=== PATIENT | male | born 1955 | race Caucasian/White ===

== ENCOUNTER 2017-02-22 07:17 | Day surgery (SDC) | payer BC, OTHER ==
[~2017-02-22 07:17] MED LIST: ACETAMINOPHEN 500 MG TABLET PO PRN; HYDROmorphone HCL 2 MG/ML VIAL IV PRN; MAG HYDROX/ALUMINUM HYD/SIMETH 30 ML UDC PO PRN; MAGNESIUM HYDROXIDE 30 ML UDC PO PRN; ONDANSETRON HCL/PF 2 MG/ML VIAL IV PRN; PROMETHAZINE HCL 25 MG in DEXTROSE 5 % IN WATER 50 ML IV PRN; RINGER'S SOLUTION,LACTATED 1,000 ML IV PRN; ZOLPIDEM TARTRATE 5 MG TABLET PO PRN; diphenhydrAMINE HCL 50 MG/ML VIAL IV PRN
[2017-02-22] MEDS: RINGER'S SOLUTION,LACTATED 1,000 ML IV ONE ×2 (08:16→10:29)
[2017-02-22] MEDS: ceFAZolin SODIUM 1 GM VIAL IV PRN (09:25)
--- NOTE | 2017-02-22 12:35 | OR ---
Anesthesia Procedure Note - Anesthesia Procedure Note Date of Service: 02/22/17 Narrative: Vital Signs - Last Taken Temp 36.7 C 02/22/17 08:40 Pulse 59 L 02/22/17 08:40 Resp 18 02/22/17 08:40 BP 124/60 02/22/17 08:40 Pulse Ox 97 02/22/17 08:40 O2 Oxygen Delivery Method Room Air 02/22/17 12:33 ANESTHESIA PROCEDURE NOTE Date of Procedure: 02/22/2017. Time of procedure: 0900. Performed by: Shorty Hyatt CRNA Wire Rope Sling Maker: None. Preprocedure diagnosis: Left humerus fracture. Post procedure diagnosis: Same. Procedure: Left ultrasound guided supraclavicular nerve block for postoperative analgesia. Indications: The patient is a 61 -year-old male, who is requesting a left ultrasound-guided supraclavicular nerve block for postoperative analgesia related to ORIF of left humerus fracture. Findings: See below. Details of the procedure: The tissue over the intended target site was cleansed with ChloraPrep. 1 ml Lidocaine 1 % was infiltrated to the skin and subcutaneous tissue. Under sterile technique and ultrasound guidance a 22-gauge block needle was inserted to the left brachial plexus nerve bundle superior to the clavicle and lateral to the axillary artery. 40 mL's of 0.5% bupivacaine plus epinephrine 1:200,000 was injected after negative aspiration for blood. Needle tip and spread of local anesthetic around the brachial plexus was observed throughout the injection with realtime ultrasound visualization. The needle was removed intact. No complications were noted. The images were retained in the hospital medical database . EBL: Minimal. Fluids: N/A. Specimen: N/A. Post procedure condition: The patient tolerated the procedure well. No complications were noted. Thank you for this consultation. Shorty Hyatt CRNA
--- NOTE | 2017-02-22 12:48 | OR ---
Operative Report - Dictated Report Narrative: Date: 02/22/2017 Physician: Luis Alberto Gimenez M.D. Acting Teacher: Gus Em PA-C Preoperative diagnosis: Displaced and angulated left humeral shaft fracture Postoperative diagnosis: Same Procedure: 1. Open reduction internal fixation of left humeral shaft fracture 2. Intraoperative interpretation of x-rays Anesthesia: General plus regional Complications: None Estimated blood loss: 50 mL Specimens: None Retained implants: Childress and nephew large fragment 4.5 mm 9 hole compression plate with associated screws Drains: None Indications: Ryland Is a 61 year-old male who sustained a displaced, oblique left humeral shaft fracture after a slip and fall on the ice 10 days ago. We initially attempted treatment in a Joseph brace, however he still had significant varus angulation and significant gapping at his fracture site and I was concerned about the risk for nonunion. I counseled him that I recommended open reduction internal fixation. The risks, benefits, and alternatives were discussed in clinic. The risks being , bleeding, infection, malunion/ nonunion, nerve, tendon, ligament, blood vessel injury, persistent pain, implant failure, wound complications, and risks with anesthesia. Consent was obtained in the clinic. Procedure: After marking the correct extremity in the preoperative holding area, a timeout was performed in the operating room. IV antibiotics consisting of 2 g of Ancef were administered prior to the procedure. A general followed by regional anesthetic was induced by the nurse coagulating drying supervisor. The patient was kept in the supine position with his operative scapula slightly bumped and the operative of her arm on an arm board. The operative arm was then shaved and pre-scrubbed with chlorhexidine solution. The operative arm was then prepped and draped in a standard sterile fashion. We marked out an incision for an anterior approach to the humeral shaft this extended from just lateral and distal to the coracoid process coming distally and laterally and a standard deltopectoral fashion then curving and running distally over the anterolateral aspect of the upper arm. The incision was proximally 25 cm in length. This was incised with a sharp knife and a combination of electrocautery and dissection with Metzenbaum scissors was carried down through the subcutaneous tissue. Proximally we proceeded with a standard deltopectoral approach. The cephalic vein was identified and retracted medially and the interval between the deltoid and the pectoralis major was developed. The anterior third of the deltoid insertion was dissected off the humerus this was just proximal to the fracture site. At this point we had good visualization of the proximal humeral shaft and we turned our attention to her dissection distally. The biceps brachii was retracted medially revealing the brachialis insertion which was partially traumatically torn from its origin which was right at the fracture site. Moving laterally the lateral intermuscular septum was identified and the plane between the brachialis and the triceps was developed. The radial nerve was identified piercing the intermuscular septum and coming around anteriorly into the lateral aspect of the brachialis muscle. This was well distal to our fracture site and out of the zone of our dissection. The brachialis muscle belly was then split longitudinally and this interval was developed down to the humeral shaft. The lateral portion of the muscle belly was gently retracted laterally, protecting the radial nerve. We then turned out attention back to the fracture site, which was partially debrided of soft tissue to identify our fracture leads being careful not to completely strip the bone of all its soft tissue attachment. Using traction and manual manipulation the fracture was reduced and keyed in nicely. Next, a 9 hole 4.5 mm compression plate was chosen and placed across fracture site. The plate was then slightly bent to match the contour of the anterolateral aspect of the humeral shaft. 3 screws both proximally and distally were then placed while checking our fracture site to ensure maintained reduction. Our reduction and the position of our implants was confirmed via fluoroscopy. At this point we felt we had adequately stabilized the humeral shaft and the wound was copiously irrigated with normal saline. The wound was closed in layered fashion using a running 0 Vicryl to close the deep muscular fascia, followed by interrupted 3-0 Vicryl to close subcutaneous tissue, and finally 4-0 nylon to close the skin. The wound was then dressed with Xeroform 4 x 4's ABDs and tape and the patient was placed into a sling. All sponge, needle, blade, and instrument counts were correct prior to closing the wounds. The patient was awoken and transferred to the postanesthesia care unit in stable condition. Examination postoperatively revealed intact radial nerve function.
[2017-02-22] MEDS: oxyCODONE HCL/ACETAMINOPHEN 1 TAB TABLET PO PRN (13:48)
[2017-02-22 14:22] VITALS: BP 129/72
[2017-02-22] MEDS ORDERED: SENNOSIDES/DOCUSATE SODIUM 1 TAB TABLET PO SCH (21:00)
== END 2017-02-22 07:18 | disposition home or self-care (01) ==
LOC: AMB 07:17
PROVIDERS: ATTEND Orthopaedic Surgery
PROC: 0PSG04Z Reposition Left Humeral Shaft with Internal Fixation Device, Open Approach (ICD-10-PCS; principal; 2017-02-22)
PROC: 3E0T3BZ Introduction of Anesthetic Agent into Peripheral Nerves and Plexi, Percutaneous Approach (ICD-10-PCS; 2017-02-22)
DX: S42.322A Displaced transverse fracture of shaft of humerus, left arm, initial encounter for closed fracture (principal); I10 Essential (primary) hypertension; Z87.891 Personal history of nicotine dependence; Z68.33 Body mass index [BMI] 33.0-33.9, adult; X58.XXXA Exposure to other specified factors, initial encounter; Y99.0 Civilian activity done for income or pay